=== PATIENT | male | born 1960 | race African-American/Black ===

== ENCOUNTER 2016-03-26 11:38 | Outpatient (CLI) | payer MEDICARE ==
[2016-03-26 12:33] LABS: #Basophils 0.2 thou/uL (0.0-0.2); #Eosinphils 0.5 thou/uL (0.0-0.7); #Lymphocytes 2.3 thou/uL (1.20-3.40); #Monocytes 0.7 thou/uL (0.11-0.59); #Neutrophils 6.7 thou/uL (1.40-6.50); %Basophils 1.9 % (0.0-1.0); %Eosinophils 4.7 % (0.0-10.0); %Monocytes 6.4 % (0.0-10.0); Hematocrit 47.4 % (42.0-52.0); Mean Platelet Volume 5.4 fL (7.4-10.4); Red Blood Cell (RBC) Count 5.06 mill/uL (4.70-6.10); White Blood Cell (WBC) Count 10.4 thou/uL (4.8-10.8)
[2016-03-26 12:48] LABS: ALT (SGPT) 21 U/L (0-55); AST (SGOT) 16 U/L (5-34); Alkaline Phosphatase 56 U/L (40-150); Anion Gap 12 mmol/L (10-20); BUN (Urea Nitrogen) 16 mg/dL (8.4-25.7); Bilirubin, Total 0.2 mg/dL (0.2-1.2); Calc. Creatinine Clearance 0 mL/min (70-130); Calcium 9.2 mg/dL (7.8-10.44); Carbon Dioxide 26 mmol/L (22-29); Chloride 107 mmol/L (98-107); Estimated GFR-MDRD 62; Globulin 2.7 g/dL (2.4-3.5); LDL Cholesterol, Calculated 110 mg/dL; Protein, Total 6.9 g/dL (6.0-8.3)
== END 2016-03-26 11:39 | disposition home or self-care (01) ==
LOC: HPCALD 11:38
PROVIDERS: ATTEND Family Medicine
DX: Z12.5 Encounter for screening for malignant neoplasm of prostate (principal); Z00.00 Encounter for general adult medical examination without abnormal findings; Z11.59 Encounter for screening for other viral diseases; E78.5 Hyperlipidemia, unspecified
CPT/HCPCS: 36415; 80053; 80061; 85025; G0103

== ENCOUNTER 2023-01-11 10:26 | Emergency (ER) | payer MEDICARE | END 2023-01-11 11:15 | disposition home or self-care (01) | LOC: BURERS 10:26 | DX: S93.421A Sprain of deltoid ligament of right ankle, initial encounter (principal); W18.42XA Slipping, tripping and stumbling without falling due to stepping into hole or opening, initial encounter ==